=== PATIENT | female | born 1955 | race Caucasian/White ===

== ENCOUNTER 2018-03-24 15:37 | Outpatient (CLI) | payer BC | END 2018-03-24 15:38 | disposition home or self-care (01) | LOC: BICMRI 15:37 | PROVIDERS: ATTEND Internal Medicine Gastroenterology | DX: K74.60 Unspecified cirrhosis of liver (principal); I86.4 Gastric varices; I86.8 Varicose veins of other specified sites; N28.1 Cyst of kidney, acquired; R16.1 Splenomegaly, not elsewhere classified | CPT/HCPCS: 74183 ==

== ENCOUNTER 2018-09-04 07:43 | Outpatient (CLI) | payer BC | END 2018-09-04 07:44 | disposition home or self-care (01) | LOC: BICMAMMO 07:43 | PROVIDERS: ATTEND Family Medicine | DX: Z12.31 Encounter for screening mammogram for malignant neoplasm of breast (principal) | CPT/HCPCS: 77063; 77067 ==

== ENCOUNTER 2018-10-08 14:42 | Outpatient (CLI) | payer BC ==
[~2018-10-08 14:42] MED LIST: Gadobenate Dimeglumine 529 MG/1 ML (20ML VIAL) ONE
--- NOTE | 2018-10-08 18:36 | MRI ---
MRI ABDOMEN WITH AND WITHOUT CONTRAST: 10/08/18 HISTORY: Unspecified cirrhosis of the liver. COMPARISON: 03/24/18. FINDINGS: The tiny cyst in the posterior aspect of the right lobe of the liver is stable. No new or focal enhan cing liver lesions are identified. Nodular appearance of the liver consistent with cirrhosis is again noted. Multiple splenic varices with a left splenorenal shunt is again noted. The patient is post ch olecystectomy. No biliary ductal dilatation is seen. The spleen is enlarged measuring 15 cm in length . Small cysts in the right kidney are redemonstrated. The adrenal glands, pancreas, and left kidney a re normal. Tiny amount of fluid in the left upper quadrant adjacent to the spleen is again noted. No lymphadenop athy seen. There is no evidence of aneurysmal dilatation of the abdominal aorta. The bone marrow sig nal is normal. No abnormal areas of enhancement are seen. IMPRESSION: 1. Cirrhosis of the liver without evidence of hepatocellular carcinoma. 2. Splenomegaly with splenic varices. 3. Right renal cysts. POS: [facility]
== END 2018-10-08 14:43 | disposition home or self-care (01) ==
LOC: BICMRI 14:42
PROVIDERS: ATTEND Internal Medicine Gastroenterology
DX: K74.60 Unspecified cirrhosis of liver (principal); R16.1 Splenomegaly, not elsewhere classified; I86.8 Varicose veins of other specified sites; N28.1 Cyst of kidney, acquired
CPT/HCPCS: 74183; A9579

== ENCOUNTER 2019-05-10 07:20 | Outpatient (CLI) | payer BC ==
--- NOTE | 2019-05-10 11:07 | MRI ---
MRI ABDOMEN WITH AND WITHOUT IV CONTRAST: Date: 05/10/19 INDICATION: History of cirrhosis of the liver. CONTRAST: 20 mL MultiHance. COMPARISON: Prior exam dated 10/08/18. FINDINGS: Again seen is cirrhotic morphology of the liver with findings of portal hypertension. The spleen is e nlarged, measuring 15 cm, which is roughly stable to the prior exam. Splenic varicosities are seen wi thin the left upper quadrant of the abdomen. Mildly prominent lymph nodes seen within the pericardial region which are stable. No new arterial enhancing lesion is evident involving the liver. Small righ t renal cyst is stable. No free fluid is identified. The pancreas, left kidney, and adrenal glands ar e normal appearing. There is subsegmental atelectasis suspected involving both lung bases. IMPRESSION: 1. Stable findings of cirrhosis of the liver. No suspicious focally enhancing lesion is evident to s uggest presence of hepatocellular carcinoma. 2. Stable splenomegaly with splenic varicosities. 3. Stable right renal cyst. POS: [facility]
[2019-05-10] MEDS ORDERED: Gadobenate Dimeglumine 529 MG/1 ML (20ML VIAL) ONE (11:57)
== END 2019-05-10 07:21 | disposition home or self-care (01) ==
LOC: BICMRI 07:20
PROVIDERS: ATTEND Internal Medicine Gastroenterology
DX: K74.60 Unspecified cirrhosis of liver (principal); R16.1 Splenomegaly, not elsewhere classified; N28.1 Cyst of kidney, acquired; I86.8 Varicose veins of other specified sites
CPT/HCPCS: 74183; A9577

== ENCOUNTER 2019-09-06 07:36 | Outpatient (CLI) | payer BC ==
--- NOTE | 2019-09-06 08:49 | MMO ---
Bilateral MAMMO Bilat Screen [facility]. CLINICAL HISTORY: Patient is 64 years old and is seen for screening. The patient has the following family history of breast cancer: paternal grandmother and cousin female. The patient has no personal history of cancer. VIEWS: The views performed were: bilateral craniocaudal with tomosynthesis; bilateral mediolateral oblique with tomosynthesis; and right craniocaudal. FILMS COMPARED: The present examination has been compared to prior imaging studies performed at [facility] on 09/01/2015, 09/02/2016, 09/03/2017 and 09/04/2018. This study has been interpreted with the assistance of computer-aided detection. MAMMOGRAM FINDINGS: There are no suspicious masses, suspicious calcifications, or new areas of architectural distortion. IMPRESSION: THERE IS NO MAMMOGRAPHIC EVIDENCE OF MALIGNANCY. A ROUTINE FOLLOW-UP MAMMOGRAM IN 1 YEAR IS RECOMMENDED. THE RESULTS OF THIS EXAM WERE SENT TO THE PATIENT. ACR BI-RADS Category 1 - Negative MAMMOGRAPHY NOTE: 1. A negative mammogram report should not delay a biopsy if a dominant of clinically suspicious mass is present. 2. Approximately 10% to 15% of breast cancers are not detected by mammography. 3. Adenosis and dense breasts may obscure an underlying neoplasm. Reported by: YELITZA MANUEL MD Electonically Signed: [id number]
== END 2019-09-06 07:37 | disposition home or self-care (01) ==
LOC: BICMAMMO 07:36
PROVIDERS: ATTEND Family Medicine
DX: Z12.31 Encounter for screening mammogram for malignant neoplasm of breast (principal); Z80.3 Family history of malignant neoplasm of breast
CPT/HCPCS: 77063; 77067

== ENCOUNTER 2019-11-12 14:40 | Outpatient (CLI) | payer BC ==
[2019-11-12] MEDS ORDERED: Magnevist 469MG/ML 20 ML VIAL ONE (16:30)
--- NOTE | 2019-11-12 16:38 | MRI ---
MRI Abdomen W WO Con History: K [age] unspecified cirrhosis Comparison: MRI abdomen May 10, 2019 Findings: There appears be consolidation in the lower lobes bilaterally. Heart size is enlarged. Spleen is enlarged measuring approximately 15 cm in length. Extensive splenic and mild gastric varice s. Small esophageal varices. Aortic contour is nonaneurysmal. No hydronephrosis. Normal proximal small bowel rotation. No retroperitoneal adenopathy. The portal vein is patent. No abnormal arterial enhancing hepatic mass. Mild prominent right pericardiophrenic lymph node measur es 5 mm in short axis. Slight interval size decrease of the jeremy hepatis lymph node axial image 1036 which measures 13 mm i n short axis, previously 17 millimeter. Impression: 1. Hepatic cirrhosis without imaging evidence of hepatocellular carcinoma. 2. Sequelae of portal hypertension, unchanged. 3. Small cyst superior pole right kidney.
== END 2019-11-12 14:41 | disposition home or self-care (01) ==
LOC: BICMRI 14:40
PROVIDERS: ATTEND Internal Medicine Gastroenterology
DX: K74.60 Unspecified cirrhosis of liver (principal); I86.4 Gastric varices; N28.1 Cyst of kidney, acquired; K76.6 Portal hypertension
CPT/HCPCS: 74183

== ENCOUNTER 2020-09-13 08:01 | Outpatient (CLI) | payer BC ==
--- NOTE | 2020-09-13 08:40 | MMO ---
Bilateral MAMMO Bilat Screen [facility]. CLINICAL HISTORY: Patient is 65 years old and is seen for screening. The patient has the following family history of breast cancer: paternal grandmother and cousin female. The patient has no personal history of cancer. VIEWS: The views performed were: bilateral craniocaudal with tomosynthesis and bilateral mediolateral oblique with tomosynthesis. FILMS COMPARED: The present examination has been compared to prior imaging studies performed at [facility] on 09/02/2016, 09/03/2017, 09/04/2018 and 09/06/2019. This study has been interpreted with the assistance of computer-aided detection. MAMMOGRAM FINDINGS: There are scattered fibroglandular densities. There are no suspicious masses, suspicious calcifications, or new areas of architectural distortion. IMPRESSION: THERE IS NO MAMMOGRAPHIC EVIDENCE OF MALIGNANCY. A ROUTINE FOLLOW-UP MAMMOGRAM IN 1 YEAR IS RECOMMENDED. THE RESULTS OF THIS EXAM WERE SENT TO THE PATIENT. ACR BI-RADS Category 1 - Negative MAMMOGRAPHY NOTE: 1. A negative mammogram report should not delay a biopsy if a dominant of clinically suspicious mass is present. 2. Approximately 10% to 15% of breast cancers are not detected by mammography. 3. Adenosis and dense breasts may obscure an underlying neoplasm. Reported by: DEMI KAUR MD Electonically Signed: [id number]
== END 2020-09-13 08:02 | disposition home or self-care (01) ==
LOC: BICMAMMO 08:01
PROVIDERS: ATTEND Family Medicine
DX: Z12.31 Encounter for screening mammogram for malignant neoplasm of breast (principal); Z80.3 Family history of malignant neoplasm of breast
CPT/HCPCS: 77063; 77067

== ENCOUNTER 2021-07-25 07:52 | Outpatient (CLI) | payer BC | END 2021-07-25 07:53 | disposition home or self-care (01) | LOC: BICULT 07:52 | PROVIDERS: ATTEND Internal Medicine Gastroenterology | DX: J84.112 Idiopathic pulmonary fibrosis (principal); K74.60 Unspecified cirrhosis of liver; I85.00 Esophageal varices without bleeding; I86.4 Gastric varices; R18.8 Other ascites; R16.1 Splenomegaly, not elsewhere classified | CPT/HCPCS: 76705 ==

== ENCOUNTER 2021-07-31 22:03 | Inpatient (IN) | payer BC, MEDICARE ==
[2021-08-01 00:10] LABS: #Basophils 0.1 thou/uL (0.0-0.2); #Monocytes 0.7 thou/uL (0.11-0.59); #Neutrophils 8.4 thou/uL (1.40-6.50); %Basophils 1.3 % (0.0-1.0); %Eosinophils 0.3 % (0.0-10.0); %Lymphocytes 9.6 % (21.0-51.0); %Monocytes 6.5 % (0.0-10.0); %Neutrophils 82.2 % (42.0-75.0); Mean Corpuscular HGB CONC 32.6 g/dL (32.0-36.0); Mean Platelet Volume 10.4 fL (7.4-10.4); Platelet Count 59 thou/uL (130-400); Red Blood Cell (RBC) Count 2.79 mill/uL (4.20-5.40); White Blood Cell (WBC) Count 10.2 thou/uL (4.8-10.8)
[2021-08-01 00:26] LABS: Bacteria/HPF None Seen HPF (None Seen); Bilirubin 2+ (Negative); Blood, Urine 3+ (Negative); Clarity Turbid (Clear); Glucose, Urine (Dipstick) Normal (Negative); Ketone, Urine 40 mg/dL (Negative); Leukocyte 75 Leu/uL (Negative); Mucous/LPF 4+ LPF (<2+); Nitrite Negative (Negative); Protein, Urine (Dipstick) 50 mg/dL (Neg-Trace); RBC/HPF Greater than 50 HPF (0-3); Renal Epithelial 0-3 HPF (None Seen); Specific Gravity, Urine 1.029 (1.002-1.036); Urobilinogen Greater than 12 mg/dL (Less than 2); WBC/HPF 21-50 HPF (0-3)
[2021-08-01 00:26] LABS: pH, Arterial 7.47 (7.35-7.45)
[2021-08-01 00:27] LABS: Actual Bicarbonate (HCO3a) 24.9 mEq/L (22-28); Base Excess (BEa) 1.4 mEq/L (-2.0 to +3.0); CO2 Tension 35.1 mmHg (35.0-45.0); Calcium, Ionized (arterial) 1.07 mmol/L (1.12-1.30); Carboxyhemoglobin (COHb) 1.5 gm% (0.0-3.0); Hemoglobin (Hb) 11.8 g/dL (12.0-16.0); O2 Tension (PaO2), arterial 84.3 mmHg (> 80.0); Potassium - ABG Lab 3.94 mmol/L (3.70-5.30)
[2021-08-01 00:28] LABS: ALV-art Gradient 71.465 mmHg (0-20); Analyzer IN Cardio ER; Puncture Site LRA
[2021-08-01 00:31] LABS: ALT (SGPT) 19 U/L (8-55); AST (SGOT) 55 U/L (5-34); Alkaline Phosphatase 112 U/L (40-110); Anion Gap 12 mmol/L (10-20); BUN (Urea Nitrogen) 18 mg/dL (9.8-20.1); Calc. Creatinine Clearance 0 mL/min (70-130); Carbon Dioxide 25 mmol/L (23-31); Chloride 99 mmol/L (98-107); Globulin 5.1 g/dL (2.4-3.5); Glucose 84 mg/dL (80-115); Potassium 4.3 mmol/L (3.5-5.1); Protein, Total 7.1 g/dL (5.8-8.1); Sodium 132 mmol/L (136-145)
[2021-08-01 04:06] LABS: SARS-CoV-2 NAA Rapid Test Not Detected (NotDetected)
[2021-08-01] MEDS ORDERED: Senokot S 8.6-50 MG TAB PO PRN (04:07)
[2021-08-01] MEDS ORDERED: Ondansetron PF 4 MG/2 ML Vial IVP PRN (04:07)
[2021-08-01] MEDS ORDERED: Acetaminophen 325 MG TAB PO PRN (04:07)
[2021-08-01 04:13] LABS: Amphetamine Not Detected (NotDetected); Barbiturates Screen Not Detected (NotDetected); Benzodiazepine Screen Not Detected (NotDetected); Cocaine Metabolite Screen Not Detected (NotDetected); Methadone Not Detected (NotDetected); Methamphetamine Not Detected (NotDetected); Opiate Screen Not Detected (NotDetected); Oxycodone Screen Not Detected (NotDetected); Phencyclidine (PCP) Not Detected (NotDetected); THC/Cannabinoid Screen Not Detected (NotDetected); Tricyclic Screen Not Detected (NotDetected)
[2021-08-01] MEDS ORDERED: Melatonin 3 MG TAB PO PRN (04:14)
[2021-08-01] MEDS ORDERED: Furosemide 40 MG/4 ML VIAL SLOW IVP SCH (04:15)
[2021-08-01] MEDS ORDERED: Furosemide 40 MG TAB ONE (04:45)
[2021-08-01] MEDS ORDERED: Furosemide 40 MG/4 ML VIAL ONE (04:45)
[2021-08-01] MEDS ORDERED: cefTRIAXone\\ROCEPHIN 1 GM VIAL ONE (04:45)
[2021-08-01] MEDS: cefTRIAXone\\ROCEPHIN 1 GM in Sodium Chloride 0.9% 100 ML IVPB SCH (05:20)
[2021-08-01] MEDS ORDERED: Levothyroxine Sodium 125 MCG TAB PO SCH (06:00)
[2021-08-01 07:49] LABS: #Lymphocytes 1.2 thou/uL (1.20-3.40); #Monocytes 0.8 thou/uL (0.11-0.59); %Basophils 0.2 % (0.0-1.0); %Eosinophils 0.6 % (0.0-10.0); %Lymphocytes 17.5 % (21.0-51.0); %Monocytes 11.4 % (0.0-10.0); %Neutrophils 70.3 % (42.0-75.0); Hemoglobin 10.5 g/dL (12.0-16.0); Mean Corpuscular HGB CONC 32.4 g/dL (32.0-36.0); Mean Corpuscular Hemoglobin 42.8 pg (27.0-31.0); Mean Platelet Volume 10.8 fL (7.4-10.4); Platelet Count 49 thou/uL (130-400); RBC Distribution Width 16.2 % (11.5-14.5); Red Blood Cell (RBC) Count 2.46 mill/uL (4.20-5.40); White Blood Cell (WBC) Count 7.1 thou/uL (4.8-10.8)
[2021-08-01 08:10] LABS: MDiff Complete? YES; Macrocytosis MARKED = >30 cells (100X) (0-5/hpf); Platelet Morphology Comment Appears Decreased; Polychromasia SLIGHT = 2-3 cells (100X) (0-2/hpf)
[2021-08-01 08:12] LABS: ALT (SGPT) 18 U/L (8-55); AST (SGOT) 47 U/L (5-34); Albumin 1.9 g/dL (3.4-4.8); Alkaline Phosphatase 102 U/L (40-110); Anion Gap 13 mmol/L (10-20); BUN (Urea Nitrogen) 18 mg/dL (9.8-20.1); Bilirubin, Total 7.2 mg/dL (0.2-1.2); Calc. Creatinine Clearance 0 mL/min (70-130); Calcium 7.6 mg/dL (7.8-10.44); Carbon Dioxide 28 mmol/L (23-31); Chloride 99 mmol/L (98-107); Globulin 4.4 g/dL (2.4-3.5); Glucose 97 mg/dL (80-115); Protein, Total 6.3 g/dL (5.8-8.1); Sodium 136 mmol/L (136-145)
[2021-08-01 08:15] LABS: INR-International Normal Ratio 2.2; PTT 46.8 sec (22.9-36.1); Prothrombin Time 24.6 sec (12.0-14.7)
[2021-08-01] MEDS ORDERED: Famotidine/PF 20 mg/2ml Vial SLOW IVP SCH (09:00)
[2021-08-01] MEDS ORDERED: Losartan 25 MG TAB PO SCH (09:00)
[2021-08-01] MEDS ORDERED: Furosemide 20 MG/2 ML VIAL SLOW IVP SCH (09:00)
[2021-08-01] MEDS ORDERED: Enoxaparin Sodium 40 MG/0.4 ML SYRINGE SC SCH (09:00)
[2021-08-01] MEDS ORDERED: Famotidine/PF 20 mg/2ml Vial ONE (11:28)
[2021-08-01] MEDS ORDERED: Nadolol 40 MG TAB PO SCH (14:00)
[2021-08-01] MEDS: Nadolol 40 MG TAB PO SCH (20:23)
[2021-08-01] MEDS: Levothyroxine Sodium 125 MCG TAB PO SCH (20:23)
[2021-08-02] MEDS: cefTRIAXone\\ROCEPHIN 1 GM in Sodium Chloride 0.9% 100 ML IVPB SCH (04:29)
[2021-08-02 04:58] LABS: Platelet Count 28 thou/uL (130-400)
[2021-08-02 05:10] LABS: Band 4 % (5-11); Eosinophils 6 % (0-10); Hemoglobin 9.7 g/dL (12.0-16.0); Hypochromia SLIGHT = 6-15 cells (100X) (0-5/hpf); Lymphocytes 18 % (21-51); MDiff Complete? YES; Macrocytosis SLIGHT = 6-15 cells (100X) (0-5/hpf); Mean Corpuscular HGB CONC 31.3 g/dL (32.0-36.0); Mean Corpuscular Hemoglobin 41.5 pg (27.0-31.0); Mean Platelet Volume 11.8 fL (7.4-10.4); Monocytes 32 % (0-10); Neutrophil 40 % (42-75); Platelet Morphology Comment Appears Decreased; RBC Distribution Width 16.2 % (11.5-14.5); Red Blood Cell (RBC) Count 2.34 mill/uL (4.20-5.40); White Blood Cell (WBC) Count 3.7 thou/uL (4.8-10.8)
[2021-08-02 05:16] LABS: ALT (SGPT) 15 U/L (8-55); AST (SGOT) 43 U/L (5-34); Albumin 1.8 g/dL (3.4-4.8); Alkaline Phosphatase 101 U/L (40-110); Anion Gap 7 mmol/L (10-20); BUN (Urea Nitrogen) 18 mg/dL (9.8-20.1); Calc. Creatinine Clearance 148 mL/min (70-130); Calcium 7.8 mg/dL (7.8-10.44); Carbon Dioxide 31 mmol/L (23-31); Chloride 100 mmol/L (98-107); Globulin 4.3 g/dL (2.4-3.5); Glucose 111 mg/dL (80-115); Potassium 3.7 mmol/L (3.5-5.1); Protein, Total 6.1 g/dL (5.8-8.1); Sodium 134 mmol/L (136-145)
[2021-08-02] MEDS ORDERED: Nadolol 40 MG TAB PO SCH (09:00)
[2021-08-02] MEDS ORDERED: Albumin 25% 25 GM/100 ML BOT IVPB SCH (12:30)
[2021-08-02] MEDS: Phytonadione 5 MG TAB PO SCH (14:36)
[2021-08-02] MEDS: Nadolol 40 MG TAB PO SCH (20:15)
[2021-08-02] MEDS: Levothyroxine Sodium 125 MCG TAB PO SCH (20:16)
[2021-08-02] MEDS ORDERED: NINTEDANIB ESYLATE 150 MG PO SCH (21:00)
[2021-08-03] MEDS: cefTRIAXone\\ROCEPHIN 1 GM in Sodium Chloride 0.9% 100 ML IVPB SCH (03:53)
[2021-08-03 05:01] LABS: Hemoglobin 8.6 g/dL (12.0-16.0); Mean Corpuscular HGB CONC 33.1 g/dL (32.0-36.0); Mean Corpuscular Hemoglobin 43.8 pg (27.0-31.0); Platelet Count 37 thou/uL (130-400); RBC Distribution Width 15.3 % (11.5-14.5); Red Blood Cell (RBC) Count 1.97 mill/uL (4.20-5.40); White Blood Cell (WBC) Count 2.5 thou/uL (4.8-10.8)
[2021-08-03 05:13] LABS: ALT (SGPT) 15 U/L (8-55); AST (SGOT) 40 U/L (5-34); Albumin 2.3 g/dL (3.4-4.8); Alkaline Phosphatase 95 U/L (40-110); Anion Gap 8 mmol/L (10-20); BUN (Urea Nitrogen) 11 mg/dL (9.8-20.1); Calc. Creatinine Clearance 1444 mL/min (70-130); Carbon Dioxide 32 mmol/L (23-31); Chloride 99 mmol/L (98-107); Glucose 122 mg/dL (80-115); Potassium 3.3 mmol/L (3.5-5.1); Protein, Total 6.3 g/dL (5.8-8.1); Sodium 136 mmol/L (136-145)
[2021-08-03 07:06] LABS: Anisocytosis SLIGHT = 6-15 cells (100X) (0-5/hpf); Band 3 % (5-11); Eosinophils 11 % (0-10); Lymphocytes 32 % (21-51); MDiff Complete? YES; Monocytes 10 % (0-10); Neutrophil 44 % (42-75); Platelet Morphology Comment Appears Decreased
[2021-08-03] MEDS ORDERED: Phytonadione 10 MG/ML AMP PO SCH (09:00)
[2021-08-03] MEDS: Phytonadione 5 MG TAB PO SCH (14:20)
[2021-08-03 14:55] VITALS: BMI 38.9
[2021-08-03] MEDS ORDERED: Furosemide 40 MG TAB PO SCH (16:00)
[2021-08-03] MEDS ORDERED: Furosemide 20 MG TAB PO SCH (16:00)
[2021-08-03] MEDS ORDERED: Potassium Chloride 10 MEQ TAB PO SCH (16:00)
[2021-08-03 18:31] LABS: Band 6 % (5-11); Eosinophils 10 % (0-10); Hemoglobin 9.5 g/dL (12.0-16.0); Lymphocytes 30 % (21-51); MDiff Complete? YES; Macrocytosis MODERATE=16-30 cells (100X) (0-5/hpf); Mean Corpuscular HGB CONC 32.9 g/dL (32.0-36.0); Mean Corpuscular Hemoglobin 43.5 pg (27.0-31.0); Mean Platelet Volume 10.6 fL (7.4-10.4); Monocytes 18 % (0-10); Neutrophil 36 % (42-75); Ovalocytes SLIGHT = 2-5 cells (100X) (0-1/hpf); Platelet Count 44 thou/uL (130-400); Platelet Morphology Comment Appears Decreased; Polychromasia SLIGHT = 2-3 cells (100X) (0-2/hpf); Red Blood Cell (RBC) Count 2.19 mill/uL (4.20-5.40); Tear Drops SLIGHT = 2-5 cells (100X) (0-1/hpf); White Blood Cell (WBC) Count 3.2 thou/uL (4.8-10.8)
[2021-08-03] MEDS: Nadolol 40 MG TAB PO SCH (20:19)
[2021-08-03] MEDS: Levothyroxine Sodium 125 MCG TAB PO SCH (20:20)
[2021-08-03] MEDS: Amoxicillin/Potassium Clav 500 MG TAB PO SCH (20:20)
[2021-08-04 04:55] LABS: ALT (SGPT) 16 U/L (8-55); AST (SGOT) 41 U/L (5-34); Alkaline Phosphatase 102 U/L (40-110); Anion Gap 8 mmol/L (10-20); BUN (Urea Nitrogen) 7 mg/dL (9.8-20.1); Bilirubin, Total 3.4 mg/dL (0.2-1.2); Calc. Creatinine Clearance 145 mL/min (70-130); Calcium 7.7 mg/dL (7.8-10.44); Carbon Dioxide 34 mmol/L (23-31); Chloride 98 mmol/L (98-107); Globulin 4.1 g/dL (2.4-3.5); Glucose 134 mg/dL (80-115); Potassium 3.5 mmol/L (3.5-5.1); Protein, Total 6.1 g/dL (5.8-8.1); Sodium 136 mmol/L (136-145)
[2021-08-04 05:52] LABS: Band 3 % (5-11); Eosinophils 9 % (0-10); Hemoglobin 8.8 g/dL (12.0-16.0); Lymphocytes 30 % (21-51); MDiff Complete? YES; Macrocytosis MODERATE=16-30 cells (100X) (0-5/hpf); Mean Corpuscular HGB CONC 32.9 g/dL (32.0-36.0); Mean Corpuscular Hemoglobin 43.4 pg (27.0-31.0); Mean Platelet Volume 10.4 fL (7.4-10.4); Monocytes 16 % (0-10); Neutrophil 42 % (42-75); Platelet Count 38 thou/uL (130-400); Platelet Morphology Comment Appears Decreased; RBC Distribution Width 15.5 % (11.5-14.5); Red Blood Cell (RBC) Count 2.03 mill/uL (4.20-5.40); White Blood Cell (WBC) Count 2.5 thou/uL (4.8-10.8)
[2021-08-04] MEDS: Furosemide 40 MG TAB PO SCH (08:46)
[2021-08-04] MEDS: Amoxicillin/Potassium Clav 500 MG TAB PO SCH ×2 (08:46→21:54)
[2021-08-04] MEDS ORDERED: Potassium Chloride 10 MEQ TAB PO SCH (09:00)
[2021-08-04 09:01] LABS: Magnesium 1.6 mg/dL (1.6-2.6); Phosphorus 2.4 mg/dL (2.3-4.7)
[2021-08-04] MEDS ORDERED: Magnesium Sulfate 4 GM in Sodium Chloride 0.9% 250 ML 250 ML IVPB SCH (09:15)
[2021-08-04] MEDS ORDERED: Electrolyte Replacement Protocol 1 EACH FS SCH (09:15)
[2021-08-04] MEDS: Phytonadione 5 MG TAB PO SCH (15:27)
[2021-08-04] MEDS: Potassium Chloride 10 MEQ TAB PO SCH (15:28)
[2021-08-04] MEDS: Nadolol 40 MG TAB PO SCH (20:43)
[2021-08-04] MEDS: Senokot S 8.6-50 MG TAB PO SCH (20:43)
[2021-08-04] MEDS: Levothyroxine Sodium 125 MCG TAB PO SCH (21:54)
[2021-08-05 04:44] LABS: Prothrombin Time 22.8 sec (12.0-14.7)
[2021-08-05 04:54] LABS: Hemoglobin 8.6 g/dL (12.0-16.0); Mean Corpuscular HGB CONC 32.2 g/dL (32.0-36.0); Mean Corpuscular Hemoglobin 42.8 pg (27.0-31.0); Mean Platelet Volume 11.5 fL (7.4-10.4); Platelet Count 42 thou/uL (130-400); RBC Distribution Width 15.7 % (11.5-14.5)
[2021-08-05 04:59] LABS: Magnesium 2.1 mg/dL (1.6-2.6); Phosphorus 2.4 mg/dL (2.3-4.7)
[2021-08-05 05:03] LABS: ALT (SGPT) 18 U/L (8-55); AST (SGOT) 45 U/L (5-34); Alkaline Phosphatase 99 U/L (40-110); Anion Gap 8 mmol/L (10-20); BUN (Urea Nitrogen) 7 mg/dL (9.8-20.1); Bilirubin, Total 3.3 mg/dL (0.2-1.2); Calc. Creatinine Clearance 146 mL/min (70-130); Calcium 7.6 mg/dL (7.8-10.44); Carbon Dioxide 32 mmol/L (23-31); Chloride 98 mmol/L (98-107); Globulin 4.2 g/dL (2.4-3.5); Glucose 134 mg/dL (80-115); Potassium 3.8 mmol/L (3.5-5.1); Protein, Total 6.2 g/dL (5.8-8.1); Sodium 134 mmol/L (136-145)
[2021-08-05 06:47] LABS: Anisocytosis SLIGHT = 6-15 cells (100X) (0-5/hpf); Band 5 % (5-11); Eosinophils 7 % (0-10); Lymphocytes 44 % (21-51); MDiff Complete? YES; Monocytes 10 % (0-10); Myelocyte 3 % (0-0); Neutrophil 30 % (42-75); Platelet Morphology Comment Appears Decreased
[2021-08-05 07:34] VITALS: BP 101/51; TEMP 98.6
[2021-08-05] MEDS: Senokot S 8.6-50 MG TAB PO SCH (08:37)
[2021-08-05] MEDS: Potassium Chloride 10 MEQ TAB PO SCH (08:37)
[2021-08-05] MEDS: Amoxicillin/Potassium Clav 500 MG TAB PO SCH (08:37)
[2021-08-05] MEDS: Furosemide 40 MG TAB PO SCH (08:37)
[2021-08-05] MEDS ORDERED: Multivit, Therapeutic 1 TAB PO SCH (09:00)
[2021-08-05] MEDS ORDERED: Cyanocobalamin (Vitamin B-12) 1,000 MCG TAB PO SCH (09:00)
== END 2021-08-05 10:35 | disposition home or self-care (01) | DRG 441 ==
LOC: ERS 22:03 → ERHOLD 08-01 01:55 → OBSVTOIN 08-01 07:10 → 2NO 08-01 16:01
PROVIDERS: ADMIT Internal Medicine; ATTEND Internal Medicine
DX: K72.90 Hepatic failure, unspecified without coma (principal); G92 Toxic encephalopathy; I50.33 Acute on chronic diastolic (congestive) heart failure; N30.00 Acute cystitis without hematuria; D68.4 Acquired coagulation factor deficiency; D61.818 Other pancytopenia; J96.11 Chronic respiratory failure with hypoxia; Z20.822 Contact with and (suspected) exposure to COVID-19; K74.69 Other cirrhosis of liver; E03.9 Hypothyroidism, unspecified; J84.10 Pulmonary fibrosis, unspecified; I11.0 Hypertensive heart disease with heart failure; E86.0 Dehydration; M19.90 Unspecified osteoarthritis, unspecified site; D69.59 Other secondary thrombocytopenia; E88.09 Other disorders of plasma-protein metabolism, not elsewhere classified; I08.1 Rheumatic disorders of both mitral and tricuspid valves; E66.9 Obesity, unspecified; J32.0 Chronic maxillary sinusitis; E87.6 Hypokalemia; E83.42 Hypomagnesemia; Z91.09 Other allergy status, other than to drugs and biological substances; Z99.81 Dependence on supplemental oxygen; Z79.899 Other long term (current) drug therapy; Z79.890 Hormone replacement therapy; Z90.49 Acquired absence of other specified parts of digestive tract; Z90.710 Acquired absence of both cervix and uterus; Z98.51 Tubal ligation status; Z91.040 Latex allergy status; Z68.38 Body mass index [BMI] 38.0-38.9, adult
CPT/HCPCS: 36415; 36600; 70450; 70551; 71045; 80053; 80306; 81003; 81015; 82105; 82140; 82274; 82805; 83735; 83880; 84100; 84443; 84484; 85025; 85060; 85610; 85730; 87040; 87086; 93005; 93306; 94640; 95712; 95816; 95819; 95957; G0378; J0696; J1940; J3475; J3490; J7050; J7620; P9047; S0028; U0002

== ENCOUNTER 2021-10-22 19:39 | Emergency (ER) | payer MEDICARE, BC ==
[2021-10-22] MEDS ORDERED: Morphine 4 MG/ML VIAL ONE (21:53)
== END 2021-10-22 22:30 | disposition home or self-care (01) ==
LOC: ERS 19:39
DX: S09.90XA Unspecified injury of head, initial encounter (principal); S42.031A Displaced fracture of lateral end of right clavicle, initial encounter for closed fracture; I10 Essential (primary) hypertension; J84.112 Idiopathic pulmonary fibrosis; W07.XXXA Fall from chair, initial encounter
CPT/HCPCS: 70450; 96372; J2270

== ENCOUNTER 2021-11-04 23:44 | Observation (INO) | payer MEDICARE, BC ==
[2021-11-05 00:35] LABS: #Basophils 0.1 thou/uL (0.0-0.2); #Eosinphils 0.1 thou/uL (0.0-0.7); #Lymphocytes 1.1 thou/uL (1.20-3.40); #Monocytes 0.7 thou/uL (0.11-0.59); #Neutrophils 3.4 thou/uL (1.40-6.50); %Basophils 1.1 % (0.0-1.0); %Eosinophils 2.6 % (0.0-10.0); %Lymphocytes 20.7 % (21.0-51.0); %Monocytes 12.6 % (0.0-10.0); Hemoglobin 11.7 g/dL (12.0-16.0); Mean Corpuscular HGB CONC 33.5 g/dL (32.0-36.0); Mean Platelet Volume 8.1 fL (7.4-10.4); Platelet Count 98 thou/uL (130-400); RBC Distribution Width 15.8 % (11.5-14.5); White Blood Cell (WBC) Count 5.4 thou/uL (4.8-10.8)
[2021-11-05 00:54] LABS: ALT (SGPT) 51 U/L (8-55); AST (SGOT) 91 U/L (5-34); Acetaminophen Less than 6.0 mcg/mL (10.0-30.0); Albumin 2.5 g/dL (3.4-4.8); Alcohol Less than 10 mg/dL (Less than 10); Alkaline Phosphatase 207 U/L (40-110); Anion Gap 11 mmol/L (10-20); BUN (Urea Nitrogen) 54 mg/dL (9.8-20.1); Bilirubin, Total 4.4 mg/dL (0.2-1.2); Calc. Creatinine Clearance 0 mL/min (70-130); Calcium 9.7 mg/dL (7.8-10.44); Carbon Dioxide 35 mmol/L (23-31); Chloride 88 mmol/L (98-107); Globulin 5.6 g/dL (2.4-3.5); Glucose 130 mg/dL (80-115); Magnesium 2.5 mg/dL (1.6-2.6); Potassium 4.7 mmol/L (3.5-5.1); Protein, Total 8.1 g/dL (5.8-8.1); Salicylate Less than 8.0 mg/dL (15.0-30.0); Sodium 129 mmol/L (136-145)
[2021-11-05 01:07] LABS: Bilirubin Negative (Negative); Blood, Urine Negative (Negative); Clarity Clear (Clear); Glucose, Urine (Dipstick) Normal (Negative); Ketone, Urine Negative (Negative); Leukocyte Negative Leu/uL (Negative); Nitrite Negative (Negative); Protein, Urine (Dipstick) Negative (Neg-Trace); Specific Gravity, Urine 1.013 (1.002-1.036); Urobilinogen Normal mg/dL (Less than 2); pH, Urine 5.5 (5.0-9.0)
[2021-11-05 05:19] LABS: SARS-CoV-2 NAA Rapid Test Not Detected (NotDetected)
[2021-11-05] MEDS ORDERED: Albumin 25% 25 GM/100 ML BOT IVPB SCH (05:45)
[2021-11-05] MEDS: Sodium Chloride 0.9% 1,000 ML IV SCH ×2 (06:37→18:52)
[2021-11-05] MEDS ORDERED: Midodrine HCl 5 MG TAB PO SCH (07:00)
[2021-11-05] MEDS ORDERED: Senokot S 8.6-50 MG TAB PO PRN (08:16)
[2021-11-05] MEDS ORDERED: Famotidine 20 MG TAB ONE (08:35)
[2021-11-05] MEDS ORDERED: Famotidine 20 MG TAB PO SCH (09:00)
[2021-11-05] MEDS: Albumin 25% 25 GM/100 ML BOT IVPB SCH ×3 (09:46→23:43)
[2021-11-05] MEDS ORDERED: Cefepime 2 GM in Sodium Chloride 0.9% 100 ML IVPB SCH (11:59)
[2021-11-05] MEDS ORDERED: Rifaximin 550 MG TAB PO SCH (12:00)
[2021-11-05] MEDS ORDERED: Acetaminophen 500 MG TAB PO PRN (12:13)
[2021-11-05 12:17] VITALS: BMI 30.6
[2021-11-05] MEDS: Cefepime 2 GM in Sodium Chloride 0.9% 100 ML IVPB SCH (14:08)
[2021-11-05] MEDS ORDERED: Sodium Chloride 0.9% 500 ML IV SCH (18:00)
[2021-11-05] MEDS ORDERED: Levothyroxine Sodium 125 MCG TAB PO SCH (21:00)
[2021-11-05] MEDS ORDERED: NINTEDANIB ESYLATE 150 MG PO SCH (21:00)
[2021-11-05] MEDS: Rifaximin 550 MG TAB PO SCH (21:51)
[2021-11-06 05:26] LABS: INR-International Normal Ratio 1.9; Prothrombin Time 22.5 sec (12.0-14.7)
[2021-11-06 05:42] LABS: ALT (SGPT) 33 U/L (8-55); AST (SGOT) 61 U/L (5-34); Albumin 2.9 g/dL (3.4-4.8); Alkaline Phosphatase 133 U/L (40-110); Anion Gap 11 mmol/L (10-20); BUN (Urea Nitrogen) 41 mg/dL (9.8-20.1); Calc. Creatinine Clearance 64 mL/min (70-130); Calcium 9.2 mg/dL (7.8-10.44); Carbon Dioxide 29 mmol/L (23-31); Chloride 98 mmol/L (98-107); Globulin 3.8 g/dL (2.4-3.5); Glucose 87 mg/dL (80-115); Potassium 4.3 mmol/L (3.5-5.1); Protein, Total 6.7 g/dL (5.8-8.1); Sodium 134 mmol/L (136-145)
[2021-11-06] MEDS: Albumin 25% 25 GM/100 ML BOT IVPB SCH ×3 (05:47→11:26)
[2021-11-06] MEDS ORDERED: Levothyroxine Sodium 125 MCG TAB PO SCH (06:00)
[2021-11-06 07:27] LABS: #Eosinphils 0.1 thou/uL (0.0-0.7); #Lymphocytes 0.8 thou/uL (1.20-3.40); #Monocytes 0.4 thou/uL (0.11-0.59); #Neutrophils 1.4 thou/uL (1.40-6.50); %Basophils 1.2 % (0.0-1.0); %Eosinophils 2.8 % (0.0-10.0); %Lymphocytes 29.1 % (21.0-51.0); %Monocytes 13.4 % (0.0-10.0); %Neutrophils 53.5 % (42.0-75.0); Hemoglobin 7.9 g/dL (12.0-16.0); Mean Corpuscular HGB CONC 33.4 g/dL (32.0-36.0); Mean Corpuscular Hemoglobin 45.2 pg (27.0-31.0); Mean Platelet Volume 8.5 fL (7.4-10.4); Platelet Count 53 thou/uL (130-400); RBC Distribution Width 15.5 % (11.5-14.5); Red Blood Cell (RBC) Count 1.76 mill/uL (4.20-5.40); White Blood Cell (WBC) Count 2.6 thou/uL (4.8-10.8)
[2021-11-06] MEDS: Rifaximin 550 MG TAB PO SCH (08:25)
[2021-11-06 09:04] VITALS: TEMP 97.9
[2021-11-06] MEDS: Cefepime 2 GM in Sodium Chloride 0.9% 100 ML IVPB SCH (11:26)
[2021-11-06] MEDS ORDERED: Cefepime 2 GM in Sodium Chloride 0.9% 100 ML IVPB SCH (12:00)
[2021-11-06 15:28] VITALS: BP 102/51
== END 2021-11-06 17:12 | disposition home or self-care (01) ==
LOC: ERS 23:44 → ERHOLD 11-05 03:52 → 2NO 11-05 11:53
PROVIDERS: ADMIT Internal Medicine; ATTEND Internal Medicine
DX: K72.10 Chronic hepatic failure without coma (principal); N17.9 Acute kidney failure, unspecified; I95.9 Hypotension, unspecified; K74.60 Unspecified cirrhosis of liver; K76.6 Portal hypertension; D64.9 Anemia, unspecified; D69.6 Thrombocytopenia, unspecified; J84.10 Pulmonary fibrosis, unspecified; I10 Essential (primary) hypertension; E03.9 Hypothyroidism, unspecified; E87.1 Hypo-osmolality and hyponatremia; J96.10 Chronic respiratory failure, unspecified whether with hypoxia or hypercapnia; E86.0 Dehydration; Z79.899 Other long term (current) drug therapy; Z91.048 Other nonmedicinal substance allergy status; Z99.81 Dependence on supplemental oxygen; Z20.822 Contact with and (suspected) exposure to COVID-19
CPT/HCPCS: 70450; 71045; 76770; 80053; 80307; 81003; 82140 ×2; 83605; 83735; 85025; 85610; 87040; 97110 ×2; 97116; 97139; 97530; P9047 ×2; U0002; 36415; 84443; 96365; 96366; 96375; 96376; G0378; J0692; J3490; J7030; J7050

== ENCOUNTER 2021-12-20 11:55 | Outpatient (CLI) | payer MEDICARE, BC | END 2021-12-20 11:56 | disposition home or self-care (01) | LOC: BICMAMMO 11:55 | PROVIDERS: ATTEND Family Medicine | DX: Z12.31 Encounter for screening mammogram for malignant neoplasm of breast (principal); Z80.3 Family history of malignant neoplasm of breast | CPT/HCPCS: 77063; 77067 ==